=== PATIENT | male | born 1980 | race Caucasian/White ===

== ENCOUNTER 2016-11-16 16:55 | Emergency (ER) | payer MEDICAID ==
[2016-11-16 17:01] VITALS: BP 152/92; PULSE 78; RESP 18; TEMP 98.6; O2SAT 98
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
[2016-11-16 17:41] LABS: BASO % 0.4 % (0.0-2.0); EOS % 0.1 % (0.0-4.0); HEMATOCRIT 41.4 % (35.0-51.0); LYMPH # 0.8 K/uL (1.0-4.3); MEAN CELL VOLUME 92.5 fl (80.0-94.0); MEAN CORPUSCULAR HEMOGLOBIN 30.6 pg (27.0-31.0); MEAN CORPUSCULAR HGB CONC 33.1 g/dL (33.0-37.0); MEAN PLATELET VOLUME 8.2 fl (7.2-11.7); MONO # 0.2 K/uL (0.0-0.8); MONO % 4.1 % (0.0-10.0); NEUT % 79.4 % (50.0-75.0); NRBC % 0.1 % (0.0-0.0); RED CELL DISTRIBUTION WIDTH 13.6 % (11.5-14.5)
[2016-11-16 18:06] LABS: ALB/GLOB RATIO 1.3 (1.0-2.1); ALKALINE PHOSPHATASE 100 U/L (38-126); ALT/SGPT 64 U/L (21-72); AST/SGOT 90 U/L (17-59); BILIRUBIN,TOTAL 0.9 mg/dl (0.2-1.3); BLOOD UREA NITROGEN 8 mg/dl (9-20); CALCIUM 8.9 mg/dL (8.4-10.2); CARBON DIOXIDE 26 mmol/L (22-30); CHLORIDE 96 mmol/L (98-107); GFR AFRICAN-AMERICAN > 60; GLUCOSE,RANDOM 86 mg/dL (75-110); LIPASE 264 U/L (23-300); POTASSIUM 3.8 MMOL/L (3.6-5.0); SODIUM 138 mmol/l (132-148)
== END 2016-11-16 19:00 ==
LOC: H.ER 16:55
DX: K29.70 Gastritis, unspecified, without bleeding (principal); I10 Essential (primary) hypertension; F10.10 Alcohol abuse, uncomplicated

== ENCOUNTER 2016-11-24 08:10 | Emergency (ER) | payer MEDICAID ==
[2016-11-24 08:15] VITALS: BP 112/93; PULSE 94; RESP 18; TEMP 98.7; O2SAT 100
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
[2016-11-24 09:29] LABS: ALB/GLOB RATIO 1.3 (1.0-2.1); ALCOHOL SERUM 35 mg/dl (0-10); ALKALINE PHOSPHATASE 75 U/L (38-126); ALT/SGPT 79 U/L (21-72); AST/SGOT 76 U/L (17-59); BILIRUBIN,TOTAL 1.2 mg/dl (0.2-1.3); BLOOD UREA NITROGEN 6 mg/dl (9-20); CALCIUM 9.3 mg/dL (8.4-10.2); CARBON DIOXIDE 26 mmol/L (22-30); CHLORIDE 103 mmol/L (98-107); GFR AFRICAN-AMERICAN > 60; GLUCOSE,RANDOM 78 mg/dL (75-110); POTASSIUM 3.8 MMOL/L (3.6-5.0); SODIUM 142 mmol/l (132-148); TOTAL PROTEIN 8.7 G/DL (6.3-8.2)
[2016-11-24 09:37] LABS: BASO % 0.2 % (0.0-2.0); EOS % 0.5 % (0.0-4.0); HEMATOCRIT 39.6 % (35.0-51.0); LYMPH # 1.1 K/uL (1.0-4.3); LYMPH % 13.7 % (20.0-40.0); MEAN CELL VOLUME 92.7 fl (80.0-94.0); MEAN CORPUSCULAR HEMOGLOBIN 30.8 pg (27.0-31.0); MEAN CORPUSCULAR HGB CONC 33.3 g/dL (33.0-37.0); MONO # 0.9 K/uL (0.0-0.8); MONO % 10.7 % (0.0-10.0); NEUT # 6.1 K/uL (1.8-7.0); NEUT % 74.9 % (50.0-75.0); NRBC % 0.3 % (0.0-0.0); RED CELL DISTRIBUTION WIDTH 13.6 % (11.5-14.5); WHITE BLOOD COUNT 8.2 K/uL (4.8-10.8)
--- NOTE | 2016-11-24 15:22 | CARD ---
APPROVED REPORT EKG Measurement Heart [id number] <Conclusion> Normal sinus rhythm Normal ECG
== END 2016-11-24 10:45 | disposition home or self-care (01) ==
LOC: H.ER 08:10
DX: F20.9 Schizophrenia, unspecified (principal); F32.9 Major depressive disorder, single episode, unspecified; R45.851 Suicidal ideations

== ENCOUNTER 2016-12-11 14:18 | Inpatient (IN) | payer MEDICAID ==
[2016-12-11 23:51] VITALS: BMI 23.8
[2016-12-12] MEDS ORDERED: Magnesium Hydroxide Susp 30 ml UD PO PRN (01:27)
[2016-12-12] MEDS ORDERED: DiphenhydrAMINE 50 mg/ml Inj IM PRN (01:27)
[2016-12-12] MEDS ORDERED: Alum-Mag Hydrox-Simethicone Susp (30 mL) PO PRN (01:27)
[2016-12-12 08:55] LABS: HDL CHOLESTEROL 105 MG/DL (30-70)
[2016-12-12 09:05] LABS: LDL CHOLESTEROL 116 mg/dL (0-129)
[2016-12-12] MEDS: Multivitamin With Minerals Tab PO SCH (14:12)
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
[2016-12-13 07:51] LABS: T4 7.28 ug/dl (5.5-11.0)
[2016-12-13] MEDS: Multivitamin With Minerals Tab PO SCH (09:11)
--- NOTE | 2016-12-13 13:36 | PCM.PYCHPN ---
Psychiatric Progress Note - Psychiatric Progress Note Patient seen today, length of contact: discussed with team Patient Chief Complaint: i am depressed Problems Identified/Issues Discussed: pt reports he is depressed. reports paranoid thoughts. reports that he has no suicidal thoughts here in the hospital. somewhat evasive about his legal issues but stresses he is not violent. pt cannot recall names of his medications. he is agreeable to risperdal and zoloft. he is reporting use of alcohol daily. Medication Change: Yes (start zoloft, risperdal) Medical Record Reviewed: Yes Mental Status Examination - Cognitive Function Orientation: Person, Place, Situation, Time Memory: Intact Attention: WNL Concentration: WNL Association: [facility] Fund of Knowledge: [facility] Decription of patient's judgement and insights: fair, but he is somewhat evasive - Mood Mood: Depressed, Anxious - Affect Affect: Broad - Speech Speech: Appropriate - Formal Thought Process Formal Thought Process: Paranoia - Suicidal Ideation Suicidal Ideation: No Plan: denies current si/hi - Homicidal Ideation Homicidal Ideation: No Goal/Treatment Plan - Goal/Treatment Plan Need for Continued Stay: Remain at risks for inpatient hospitalization, Discharge may exacerbated symptoms Progress Toward Problem(s) and Goals/Treatment Plan: mdd moderate recurrent r/o severe with psychosis will start risperdal and zoloft to target his mood/paranoid thoughts encourage participation in groups reach out to his surface to air weapons officer regarding ankle bracelet disposition planning Estimated Date of D/C: 12/17/16
[2016-12-13 19:50] LABS: HEMOGLOBIN 14.4 g/dL (12.0-18.0); RBC 4.68 Mil/uL (4.40-5.90); WHITE BLOOD COUNT 5.7 K/uL (4.8-10.8)
[2016-12-13 20:00] LABS: MEAN CELL VOLUME 92.8 fl (80.0-94.0); MEAN CORPUSCULAR HEMOGLOBIN 30.7 pg (27.0-31.0); MEAN CORPUSCULAR HGB CONC 33.1 g/dL (33.0-37.0); RED CELL DISTRIBUTION WIDTH 14.2 % (11.5-14.5)
[2016-12-13 20:34] LABS: URINE BILIRUBIN NEGATIVE (NEGATIVE); URINE CLARITY Clear (Clear); URINE GLUCOSE (UA) NEGATIVE (Normal)
[2016-12-13 20:35] LABS: URINE BLOOD NEGATIVE (NEGATIVE); URINE NITRATE NEGATIVE (NEGATIVE); URINE PROTEIN NEGATIVE (NEGATIVE); URINE UROBILINOGEN 0.2 mg/dL (0.2-1.0)
[2016-12-13 20:39] LABS: SQUAMOUS EPITHIAL 1 /hpf (0-5); URINE LEUKOCYTE ESTERASE NEGATIVE Leu/uL (Negative)
[2016-12-13 20:43] LABS: BLOOD UREA NITROGEN 6 mg/dl (9-20); GFR AFRICAN-AMERICAN > 60; GFR NON-AFRICAN AMERICAN > 60; URINE COLOR COLORLESS (YELLOW)
[2016-12-13 20:44] LABS: ALB/GLOB RATIO 1.3 (1.0-2.1); ALBUMIN 5.1 g/dL (3.5-5.0); CALCIUM 8.9 mg/dL (8.4-10.2)
[2016-12-13 20:45] LABS: ALT/SGPT 49 U/L (21-72); AST/SGOT 50 U/L (17-59)
[2016-12-13] MEDS ORDERED: Risperidone M tab 0.5MG PO SCH (22:00)
[2016-12-14] MEDS: Multivitamin With Minerals Tab PO SCH (09:31)
--- NOTE | 2016-12-14 11:32 | PCM.PYCHPN ---
Psychiatric Progress Note - Psychiatric Progress Note Patient seen today, length of contact: discussed with team Patient Chief Complaint: i have so many things i worry about Problems Identified/Issues Discussed: pt seen with sai díaz, who speaks italian. pt is c/o a lot of anxiety related to his personal/housing/legal and financial issues. he feels depressed. he cannot shut off his thoughts and is frustrated. he feels the medication last night did not help. he had poor sleep. he denies medication side effects. he is c/w his loss of appetite also. Medication Change: Yes (dc risperdal, start seroquel) Medical Record Reviewed: Yes Mental Status Examination - Cognitive Function Orientation: Person, Place, Situation, Time Memory: Intact Attention: WNL Concentration: WNL Association: WNL Fund of Knowledge: [facility] Decription of patient's judgement and insights: fair - Mood Mood: Depressed, Anxious - Affect Affect: Broad - Speech Speech: Appropriate - Formal Thought Process Formal Thought Process: Paranoia - Suicidal Ideation Suicidal Ideation: No - Homicidal Ideation Homicidal Ideation: No Goal/Treatment Plan - Goal/Treatment Plan Need for Continued Stay: Remain at risks for inpatient hospitalization, Discharge may exacerbated symptoms Progress Toward Problem(s) and Goals/Treatment Plan: mdd moderate recurrent r/o severe with psychosis dc risperdal and start seroquel, continue zoloft increase ativan to target anxiety/withdrawal encourage participation in groups reach out to his transit police officer regarding ankle bracelet disposition planning Estimated Date of D/C: 12/17/16
[2016-12-14 16:50] LABS: BARBITURATES, UR NEGATIVE (NEGATIVE); BENZODIAZEPINES, UR POSITIVE (NEGATIVE); OPIATES, UR NEGATIVE (NEGATIVE); PHENCYCLIDINE, UR NEGATIVE (NEGATIVE)
[2016-12-15] MEDS: Multivitamin With Minerals Tab PO SCH (08:55)
--- NOTE | 2016-12-15 13:42 | PCM.PYCHPN ---
Psychiatric Progress Note - Psychiatric Progress Note Patient seen today, length of contact: with cameroonian speaking sw Patient Chief Complaint: the meds are perfect, i feel perfect now Problems Identified/Issues Discussed: pt reports he feels more calm. states he has a court date today. is interested in leaving the hospital. denies any suicidal or homicidal thoughts. he is visible in the milieu. states he knows he cannot drink with his medications. Medication Change: No ( ) Medical Record Reviewed: Yes Mental Status Examination - Cognitive Function Orientation: Person, Place, Situation, Time Memory: Intact Attention: WNL Concentration: WNL Association: [facility] Fund of Knowledge: [facility] Decription of patient's judgement and insights: fair - Mood Mood: Depressed, Anxious - Affect Affect: Constricted - Speech Speech: Appropriate - Formal Thought Process Formal Thought Process: Paranoia - Suicidal Ideation Suicidal Ideation: No - Homicidal Ideation Homicidal Ideation: No Goal/Treatment Plan - Goal/Treatment Plan Need for Continued Stay: Remain at risks for inpatient hospitalization, Discharge may exacerbated symptoms Progress Toward Problem(s) and Goals/Treatment Plan: mdd moderate recurrent r/o severe with psychosis continue seroquel, continue zoloft continue ativan to target anxiety/withdrawal encourage participation in groups reach out to his chief business officer regarding ankle bracelet disposition planning Estimated Date of D/C: 12/17/16
[2016-12-16] MEDS: Multivitamin With Minerals Tab PO SCH (09:53)
[2016-12-16 11:24] VITALS: BP 125/73; PULSE 62; RESP 16; TEMP 99.3
--- NOTE | 2016-12-16 11:38 | PCM.PYCHDC ---
Mental Status Examination - Mental Status Examination Orientation: Person, Place, Situation, Time Memory: Intact Mood: Anxious (regarding discharge) Affect: Broad Speech: Appropriate Attention: WNL Concentration: WNL Association: WNL Fund of Knowledge: WNL Formal Thought Process: No Impairment Description of patient's judgement and insight: fair Psychotic Thoughts and Behaviors: denies a/v hallucinations Suicidal Ideation: No Current Homicidal Ideation?: No Plan: pt denies any suicidal or homicidal thoughts plans or intent Discharge Summary - Discharge Note Reason for Hospitalization: depression, anxiety, legal and economic stress with suicidal thoughts. Psychiatric History (includes Medical, Family, Personal Hx): history of prolonged hospitalization after a suicide attempt. Consultations:: List each consultation separately and include: 1. Reason for request. 2. Findings. 3. Follow-up Consultations: seen by hospitalist Summary of Hospital Course include:: 1. Description of specific treatment plan utilized for patients during their course of treatmen. 2. Summarize the time- course for resolution of acute symptoms and/or regressed behaviors. 3. Describe issues identified and worked on during hospitalization. 4. Describe medication utilized. 5. Describe medical problems identified and treated. 6. Reassessment of suicide risk Summary of Hospital Course: [facility] and oriented to the unit. pt placed on routine safety protocols. pt started on ativan for alcohol withdrawal and was started on zoloft , traozdone and seroquel for mood/anxiety symptoms. he participated in treatment. he reported his anxiety improved and he denied any suicidal thoughts at the time of discharge. pt was demanding discharge after he received money from a friend to obtain an apartment. he was agreeing to f.u with aftercare and indicated he was motivated to stay sober. - Final Diagnosis (DSM 5) Condition upon Discharge: STABLE DSM 5: major depression recurrent moderate alcohol dependence Disposition: HOME/ ROUTINE Follow-up Treatment Plan: take medications as prescribed do not use alcohol, tobacco or other illicit substances call 911 if any suicidal or homicidal thoughts attend AA meetings daily follow up with aftercare as directed Prescriptions/Medication Reconciliation: Folic Acid 1 mg PO DAILY #30 tab LORazepam [Ativan] 1 mg PO BID #20 tab Multimineral/Multivitamin [Therapeutic-M Tab] 1 tab PO DAILY #30 tab QUEtiapine [SEROquel] 50 mg PO HS #30 tab Sertraline [Zoloft] 50 mg PO DAILY #30 tab Thiamine [Vitamin B1 Tab] 100 mg PO DAILY #30 tab traZODone [Desyrel] 50 mg PO HS PRN #30 tab PRN Reason: Insomnia - Smoking Cessation Smoking Cessation Medication prescribed: No Reason for not providing: declined - Antipsychotic Medications Pt discharged on 2 or more routine antipsychotic medications: No
== END 2016-12-16 12:52 | disposition home or self-care (01) | DRG 430 ==
LOC: H.ER 14:18 → H.ERHOLD 12-12 01:05 → H.PSYCH 12-12 01:14
PROVIDERS: ADMIT Nurse Practitioner Psychiatric/Mental Health; ATTEND Nurse Practitioner Psychiatric/Mental Health
PROC: GZHZZZZ Group Psychotherapy (ICD-10-PCS; principal; 2016-12-12)
DX: F33.1 Major depressive disorder, recurrent, moderate (principal); F41.9 Anxiety disorder, unspecified; F14.90 Cocaine use, unspecified, uncomplicated; F13.90 Sedative, hypnotic, or anxiolytic use, unspecified, uncomplicated; Y90.8 Blood alcohol level of 240 mg/100 ml or more; F10.229 Alcohol dependence with intoxication, unspecified

== ENCOUNTER 2017-07-11 13:27 | Emergency (ER) | payer MEDICAID ==
[2017-07-11 13:27] VITALS: BMI 23.8
[2017-07-11 14:04] VITALS: RESP 18
--- NOTE | 2017-07-11 14:26 | ED PDOC ---
HPI: Abdomen Time Seen by Provider: 07/11/17 14:21 Chief Complaint (Nursing): Abdominal Pain History Per: Patient Onset/Duration Of Symptoms: Days (1) Current Symptoms Are (Timing): Still Present Severity: Mild Pain Scale Rating Of: 2 Location Of Pain/Discomfort: Epigastric Associated Symptoms: Nausea, Vomiting. denies: Fever, Diarrhea Exacerbating Factors: None Alleviating Factors: None Additional Complaint(s): Epigastric abd pain assoc with nausea and vomiting since last night . No fever or diarrhea. No blood in vomitus. Past Medical History Vital Signs: Last Vital Signs Temp 98.5 F 07/11/17 14:01 Pulse 75 07/11/17 14:01 Resp 18 07/11/17 14:01 BP 129/64 07/11/17 14:01 Pulse Ox 98 07/11/17 14:26 - Medical History PMH: Bipolar Disorder, Depression Denies: Diabetes, Hepatitis, HIV, HTN, Chronic Kidney Disease, Schizophrenia , Seizures, Sexually Transmitted Disease - Family History Family History: States: Unknown Family Hx - Home Medications Home Medications: Ambulatory Orders Medication Instructions Recorded Naproxen 375 mg PO Q8 PRN #21 tab 04/09/14 Folic Acid 1 mg PO DAILY #30 tab 12/16/16 LORazepam [Ativan] 1 mg PO BID #20 tab 12/16/16 Multimineral/Multivitamin 1 tab PO DAILY #30 tab 12/16/16 [Therapeutic-M Tab] QUEtiapine [SEROquel] 50 mg PO HS #30 tab 12/16/16 Sertraline [Zoloft] 50 mg PO DAILY #30 tab 12/16/16 Thiamine [Vitamin B1 Tab] 100 mg PO DAILY #30 tab 12/16/16 traZODone [Desyrel] 50 mg PO HS PRN #30 tab 12/16/16 Famotidine [Pepcid] 20 mg PO Q12 #20 tab 07/11/17 Ondansetron [Zofran] 4 mg PO Q8H #10 tab 07/11/17 - Allergies Allergies/Adverse Reactions: Allergies Allergy/AdvReac Type Severity Reaction Status Date / Time No Known Allergies Allergy Verified 12/11/16 14:22 Review of Systems ROS Statement: Except As Marked, All Systems Reviewed And Found Negative Constitutional: Negative for: Fever Gastrointestinal: Positive for: Nausea, Vomiting, Abdominal Pain. Negative for : Diarrhea Physical Exam - Reviewed Nursing Documentation Reviewed: Yes Vital Signs Reviewed: Yes - Physical Exam Appears: Positive for: Non-toxic, No Acute Distress Head Exam: Positive for: ATRAUMATIC, NORMAL INSPECTION, NORMOCEPHALIC Skin: Positive for: Normal Color, Warm, DRY Eye Exam: Positive for: EOMI, Normal appearance, PERRL ENT: Positive for: Normal ENT Inspection Neck: Positive for: Normal, Painless ROM Cardiovascular/Chest: Positive for: Regular Rate, Rhythm Respiratory: Positive for: CNT, Normal Breath Sounds Gastrointestinal/Abdominal: Positive for: Bowel Sounds, Soft, Tenderness (Mild epigastric) Back: Positive for: Normal Inspection Extremity: Positive for: Normal ROM Neurologic/Psych: Positive for: Alert, Oriented - Laboratory Results Result Diagrams: 07/11/17 15:00 07/11/17 15:00 - ECG O2 Sat by Pulse Oximetry: 98 Disposition - Clinical Impression Clinical Impression: Gastritis - Patient ED Disposition Is Patient to be Admitted: No Counseled Patient/Family Regarding: Studies Performed, Diagnosis, Need For Followup, Rx Given - Disposition Referrals: [facility] [Outside] Disposition: Routine/Home Disposition Time: 15:38 Condition: FAIR Prescriptions: Famotidine [Pepcid] 20 mg PO Q12 #20 tab Ondansetron [Zofran] 4 mg PO Q8H #10 tab Instructions: Gastritis (ED) Forms: [facility] (Dutch) Print Language: [id number]
[2017-07-11 15:13] LABS: BASO % 0.8 % (0.0-2.0); HEMOGLOBIN 13.8 g/dL (12.0-18.0); LYMPH # 1.2 K/uL (1.0-4.3); LYMPH % 18.8 % (20.0-40.0); MEAN CELL VOLUME 92.1 fl (80.0-94.0); MEAN CORPUSCULAR HEMOGLOBIN 30.6 pg (27.0-31.0); MEAN CORPUSCULAR HGB CONC 33.3 g/dL (33.0-37.0); MEAN PLATELET VOLUME 8.6 fl (7.2-11.7); MONO # 0.3 K/uL (0.0-0.8); MONO % 4.6 % (0.0-10.0); NEUT # 4.8 K/uL (1.8-7.0); NEUT % 75.8 % (50.0-75.0); NRBC % 0.1 % (0.0-0.0); RBC 4.5 Mil/uL (4.40-5.90); RED CELL DISTRIBUTION WIDTH 13.6 % (11.5-14.5); WHITE BLOOD COUNT 6.3 K/uL (4.8-10.8)
[2017-07-11] MEDS: Sodium Chloride 0.9% 1,000 ML IV STA (15:16)
[2017-07-11 15:31] LABS: CALCIUM 9.4 mg/dL (8.4-10.2); GFR AFRICAN-AMERICAN > 60; GFR NON-AFRICAN AMERICAN > 60
[2017-07-11 15:32] LABS: ALB/GLOB RATIO 1.3 (1.0-2.1); ALBUMIN 5.1 g/dL (3.5-5.0); ALT/SGPT 45 U/L (21-72); AST/SGOT 101 U/L (17-59); BLOOD UREA NITROGEN 7 mg/dl (9-20)
[2017-07-11 15:50] VITALS: BP 128/78; PULSE 70; TEMP 98.2; O2SAT 99
== END 2017-07-11 16:21 | disposition home or self-care (01) ==
LOC: H.ER 13:27
DX: K29.70 Gastritis, unspecified, without bleeding (principal); F31.9 Bipolar disorder, unspecified
CPT/HCPCS: 80053; 85025; 96374; 96375; 99282; J2405; J7040